=== PATIENT | female | born 1975 | race Caucasian/White ===

== ENCOUNTER 2023-03-06 | Emergency (ER) | payer OTHER, SELFPAY ==
[2023-03-06 00:08] VITALS: BP 151/98; PULSE 106; RESP 18; TEMP 37.1; O2SAT 97; BMI 30.9
[2023-03-06 01:30] LABS: Basophils Absolute Auto 0.1 10^3/uL (0.0-0.1); Basophils Percent Auto 0.5 % (0.2-2.0); Eosinophils Absolute Auto 0.1 10^3/uL (0.0-0.7); Eosinophils Percent Auto 0.9 % (0.9-7.0); Hematocrit 39.8 % (36.0-48.0); Hemoglobin 13.3 g/dL (12.0-16.0); Immature Granulocytes Abs Auto 0.03 10^3/uL (0.00-0.03); Immature Granulocytes Pct Auto 0.3 % (0.0-0.5); Lymphocytes Absolute Auto 1.9 10^3/uL (1.2-3.8); Lymphocytes Percent Auto 18.9 % (20.5-60.0); Mean Corpuscular HGB Conc 33.4 g/dL (29.9-35.2); Mean Corpuscular Hemoglobin 32.5 pg (26.7-34.0); Mean Corpuscular Volume 97.3 fL (81.0-99.0); Monocytes Absolute Auto 0.5 10^3/uL (0.3-0.8); Neutrophils Absolute Auto 7.6 10^3/uL (1.4-6.5); Neutrophils Percent Auto 74.4 % (43.0-75.0); Platelet Count 353 10^3/uL (150-450); Red Blood Count 4.09 10^6/uL (4.20-5.40); Red Cell Distribution Width 13.1 % (11.0-15.0); White Blood Count 10.2 10^3/uL (4.0-11.0)
--- NOTE | 2023-03-06 02:18 | ED.GENADUL1 ---
HPI - General Adult General Chief complaint: Vaginal Bleeding Stated complaint: VAGNIAL BLEEDING Time Seen by Provider: 03/06/23 01:12 EDT Source: patient Mode of arrival: walk-in Limitations: no limitations History of Present Illness HPI narrative: 39-year-old female to the emergency Department vaginal bleeding. Patient reports she has had irregular periods for the last year. Her menstrual cycle that was expected in five days ago. She reports heavier than normal bleeding. Concerned about the bleeding and clots today which soaked one pad an hour prompting her to see Dr. Box [facility] earlier in the night. There she had lab work and a pelvic exam performed.She was instructed to follow with her [facility] and had no further therapy. Patient is seeking 2nd opinion here. Related Data Previous Rx's Medication Instructions Recorded tranexamic acid 650 mg tablet 1,300 mg PO TID 5 days #30 tabs 03/06/23 Allergies Allergy/AdvReac Type Severity Reaction Status Date / Time cefaclor [From Ceclor] Allergy Intermediate Verified 03/06/23 00:16 Penicillins Allergy Intermediate Verified 03/06/23 00:16 Review of Systems ROS Status of ROS 10 or more systems reviewed and unremarkable except as noted in history and below Exam Narrative Exam Narrative: VITALS: I have reviewed the triage vital signs. GENERAL: Well developed, well appearing adult in no acute distress. NEURO: Alert and oriented. Moves all extremities. Face is symmetric and expressive. EYES: PERRL. No scleral icterus or conjunctival injection. No discharge. HENT: Normocephalic, atraumatic. Hearing is grossly intact. Nares grossly patent and without discharge. Mucous membranes moist. NECK: No JVD. Patient moves neck without restriction. CARDIO: Rhythm regular. Normal rate. No murmur, rub, or gallop. Pulses equal bilaterally in the upper and lower extremity. No lower extremity edema. PULM: Lungs clear to auscultation in all herndon. No wheezes, rales, or rhonchi. No conversational dyspnea. No splinting, stridor, or accessory muscle use. GI/: Abdomen is soft and non-tender. Normoactive bowel sounds. EXTREMITIES: Symmetric muscle bulk. No joint swelling. No clubbing, cyanosis, or deformity. SKIN: Warm and dry. Normal turgor. No rash or lesions appreciated. PSYCH: Mood, affect, and interaction is appropriate to the setting. Constitutional Vital Signs, click to edit/add: Last Vital Signs Temp 98.8 F 03/06/23 00:08 Pulse 106 H 03/06/23 00:08 Resp 18 03/06/23 00:08 BP 151/98 H 03/06/23 00:08 Pulse Ox 97 03/06/23 00:08 O2 Del Method Room Air 03/06/23 00:08 Course Vital Signs Vital signs: Vital Signs Temperature 98.8 F 03/06/23 00:08 Pulse Rate 106 H 03/06/23 00:08 Respiratory Rate 18 03/06/23 00:08 Blood Pressure 151/98 H 03/06/23 00:08 Pulse Oximetry 97 03/06/23 00:08 Oxygen Delivery Method Room Air 03/06/23 00:08 Temperature 98.8 F 03/06/23 00:08 Pulse Rate 106 H 03/06/23 00:08 Respiratory Rate 18 03/06/23 00:08 Blood Pressure 151/98 H 03/06/23 00:08 Pulse Oximetry 97 03/06/23 00:08 Oxygen Delivery Method Room Air 03/06/23 00:08 Medical Decision Making MDM Narrative Medical decision making narrative: 47-year-old female emergency department with chief complaint of vaginal bleeding. Vital stable, patient is afebrile. History and exam suggest dysfunctional uterine bleeding. She had evaluation of [facility] just prior to arrival here. There she had a hemoglobin of 13.7. She had stable vitals. I did speak with the provider there performed pelvic exam and she had minimal bleeding at that time. No obvious source. I believe the history and previous workup suggest dysfunctional uterine bleeding. She had a negative test there. I offered the patient repeat CBC and pelvic exam. She declined a repeat pelvic exam. Repeat CBC with essentially unchanged hemoglobin level. She is hemodynamically stable. We discussed risks and benefits of hormonal therapy, NSAIDs, tranexamic acid best therapy. After discussion of her symptoms benefits including the risk of thromboembolism with the various drugs choices she agrees with therapy with NSAID and tranexamic acid. She will take NSAIDs at home. Tranexamic acid prescription was given. She'll follow up with phone call on Tuesday with her [facility]. Return precautions were discussed. All questions were answered. Patient was discharged home. Lab Data Labs: Lab Results 03/06/23 Range/Units 01:20 EST WBC 10.2 (4.0-11.0) 10^3/uL RBC 4.09 L (4.20-5.40) 10^6/uL Hgb 13.3 (12.0-16.0) g/dL Hct 39.8 (36.0-48.0) % MCV 97.3 (81.0-99.0) fL MCH 32.5 (26.7-34.0) pg MCHC 33.4 (29.9-35.2) g/dL RDW 13.1 (11.0-15.0) % Plt Count 353 (150-450) 10^3/uL MPV 9.0 L (9.5-13.5) fL Neut % (Auto) 74.4 (43.0-75.0) % Lymph % (Auto) 18.9 L (20.5-60.0) % [place] % (Auto) 5.0 (1.7-12.0) % Eos % (Auto) 0.9 (0.9-7.0) % Baso % (Auto) 0.5 (0.2-2.0) % Neut # (Auto) 7.6 H (1.4-6.5) 10^3/uL Lymph # (Auto) 1.9 (1.2-3.8) 10^3/uL [place] # (Auto) 0.5 (0.3-0.8) 10^3/uL Eos # (Auto) 0.1 (0.0-0.7) 10^3/uL Baso # (Auto) 0.1 (0.0-0.1) 10^3/uL Abs Immat Gran (auto) 0.03 (0.00-0.03) 10^3/uL Imm/Tot Granulo (auto) 0.3 (0.0-0.5) % Discharge Plan Discharge Chief Complaint: Vaginal Bleeding Clinical Impression: Dysfunctional uterine bleeding Patient Disposition: Home, Self-Care Time of Disposition Decision: 01:46 Condition: Good Mode of Transportation: Private Vehicle Prescriptions / Home Meds: New tranexamic acid 650 mg tablet 1,300 mg PO TID 5 Days Qty: 30 0RF Rx Instructions: MAY DISCONTINUE WHEN BLEEDING STOPS Print Language: Slovak Instructions: Abnormal (Dysfunctional) Uterine Bleeding (ED) Stand Alone Forms: Portal Instructions Referrals: LNYETTE CANCHOLA [Physician] - As soon as possible Physician,Non-Staff, [Primary Care Provider] - 1 week Discharge Date/Time: 03/06/23 01:13 EST
== END 2023-03-06 01:13 | disposition home or self-care (01) ==
PROVIDERS: Emergency Provider Student in an Organized Health Care Education/Training Program
DX: N93.8 Other specified abnormal uterine and vaginal bleeding (principal)
CPT/HCPCS: 36415; 85025; 99283